=== PATIENT | female | born 1950 | race Caucasian/White ===

== ENCOUNTER → 2017-11-19 | Outpatient (CLI) | payer MEDICARE, BC ==
[~2017-11-19] MED LIST: ESTR1PAT65 TP; FAMO40TA61 PO; VALS160T3 PO
[2017-11-19 12:35] LABS: MICROSCOPIC AUTO
[2017-11-19 12:50] LABS: ALANINE AMINOTRANSFERASE 32 U/L (12-78); ALBUMIN 4.1 g/dL (3.4-5.0); ALKALINE PHOSPHATASE 95 U/L (45-117); ANION GAP 10 mmol/L (5-15); BILIRUBIN,TOTAL 0.4 mg/dL (0.2-1.0); CALCIUM 8.8 mg/dL (8.5-10.1); CHLORIDE 108 mmol/L (98-107); CREATININE 0.79 mg/dL (0.55-1.02); TOTAL PROTEIN 7.9 g/dL (6.4-8.2)
== END ==
LOC: STAR 10:25
PROVIDERS: ATTEND Orthopaedic Surgery
DX: Z01.818 Encounter for other preprocedural examination (principal); M16.11 Unilateral primary osteoarthritis, right hip; R94.31 Abnormal electrocardiogram [ECG] [EKG]
CPT/HCPCS: 36415; 80053; 81001; 87081; 87086; 93005

== ENCOUNTER 2017-12-03 10:33 | Inpatient (IN) | payer BC, MEDICARE ==
[~2017-12-03] VITALS: Ht 165.1 cm; Wt 83.0 kg
[2017-12-03] MEDS ORDERED: LACTATED RINGERS 1,000 ML IV SCH (11:48)
[2017-12-03] MEDS ORDERED: LIDOCAINE 1%, 2ML ONE (11:59)
[2017-12-03] MEDS ORDERED: LIDOCAINE 1%, 2ML SQ PRN (12:00)
[2017-12-03 12:07] LABS: BASOPHILS # (AUTO) 0.04 x10^3/uL (0-0.1); BASOPHILS % (AUTO) 1 % (0-1); EOSINOPHILS # (AUTO) 0.19 x10^3/uL (0-0.4); EOSINOPHILS % (AUTO) 2 % (1-7); LYMPHOCYTES # (AUTO) 1.55 x10^3/uL (1-3.4); LYMPHOCYTES % (AUTO) 17 % (22-44); MD NO; MEAN CORPUSCULAR HEMOGLOBIN 31.6 pg (27.0-34.8); MEAN CORPUSCULAR HGB CONC 34.5 g/dL (32.4-35.8); MEAN CORPUSCULAR VOLUME 91.7 fL (80-100); MEAN PLATELET VOLUME 9.8 fL (7.4-10.4); MONOCYTES # (AUTO) 0.63 x10^3/uL (0.2-0.8); MONOCYTES % (AUTO) 7 % (2-9); NEUTROPHILS # (AUTO) 6.58 x10^3/uL (1.8-6.8); NEUTROPHILS % (AUTO) 73 % (42-75); PLATELET COUNT 207 x10^3/uL (130-400); RED BLOOD COUNT 5.22 x10^6/uL (3.82-5.3); RED CELL DISTRIBUTION WIDTH 12.6 % (9.6-15.2)
[2017-12-03] MEDS ORDERED: MIDAZOLAM 1 MG/ML, 2ML ONE ×2 (12:16)
[2017-12-03] MEDS ORDERED: ROPIvacaine/PF 0.5%, 30 ML ONE (12:26)
[2017-12-03] MEDS ORDERED: KETOROLAC 60 MG/2 ML ONE (12:26)
[2017-12-03] MEDS ORDERED: SODIUM CHLORIDE 0.9% 100 ML ONE (12:26)
[2017-12-03] MEDS ORDERED: morphine SULFATE 10 MG/ML, 1ML ONE (12:26)
[2017-12-03] MEDS ORDERED: BACITRACIN 50,000 UNIT ONE (12:27)
[2017-12-03] MEDS ORDERED: FENTANYL PF 250 MCG/5ML ONE (12:28)
[2017-12-03] MEDS ORDERED: CEFAZOLIN 1,000 MG ONE ×2 (12:30)
[2017-12-03] MEDS ORDERED: LIDOCAINE-MPF 2% ,5ML ONE (12:30)
[2017-12-03] MEDS ORDERED: SODIUM CHLORIDE 0.9% PF 10ML ONE (12:30)
[2017-12-03] MEDS ORDERED: PROPOFOL 10 MG/ML, 20ML ONE (12:30)
[2017-12-03] MEDS ORDERED: DEXAMETHASONE 4 MG/ML, 1ML ONE (12:35)
[2017-12-03] MEDS ORDERED: ONDANSETRON 2MG/ML, 2ML ONE ×2 (12:35)
[2017-12-03] MEDS ORDERED: TRANEXAMIC ACID 100 MG/ML, 10ML ONE (12:37)
[2017-12-03] MEDS ORDERED: PHENYLEPHRINE 10 MG/ML ONE (13:06)
[2017-12-03] MEDS ORDERED: KETAMINE 10 MG/ML, 20ML ONE (13:06)
[2017-12-03] MEDS ORDERED: BUPIVACAINE LIPOSOME/PF INFIL ONE (14:35)
[2017-12-03] MEDS ORDERED: HYDROmorphone 2 MG/ML, 1ML ONE (14:45)
[2017-12-03] MEDS ORDERED: OXYcodone 5 MG/5 ML ORAL.SOL UDC PO PRN (15:00)
[2017-12-03] MEDS ORDERED: ONDANSETRON 2MG/ML, 2ML IVPush PRN (15:00)
[2017-12-03] MEDS ORDERED: LORazepam 2 MG/ML, 1ML IVPush PRN (15:00)
[2017-12-03] MEDS: MEPERIDINE/PF 25MG/0.5ML IVPush PRN ×2 (15:00→15:48)
[2017-12-03] MEDS ORDERED: hydrALAzine 20 MG/ML, 1ML IV PRN (15:00)
[2017-12-03] MEDS ORDERED: ACETAMINOPHEN 325 MG TABLET PO PRN (15:00)
[2017-12-03] MEDS ORDERED: FENTANYL PF 100 MCG/2ML IV PRN (15:00)
[2017-12-03] MEDS ORDERED: LABETALOL 5MG/ML, 20ML IV PRN (15:00)
[2017-12-03] MEDS ORDERED: HYDROmorphone 1 MG/ML, 1ML IV PRN (15:00)
[2017-12-03] MEDS ORDERED: PROMETHAZINE 25 MG/ML, 1ML IV PRN (15:00)
[2017-12-03] MEDS ORDERED: MEPERIDINE/PF 50 MG/ML ONE (15:12)
[2017-12-03] MEDS ORDERED: OXYcodone/APAP 5/325MG TABLET PO PRN (15:30)
[2017-12-03] MEDS ORDERED: PROMETHAZINE 12.5 MG SUPP PR PRN (15:30)
[2017-12-03] MEDS ORDERED: HYDROcodone/APAP 10/325 MG TABLET PO PRN (15:30)
[2017-12-03] MEDS ORDERED: ONDANSETRON 4 MG TABLET PO PRN (15:30)
[2017-12-03] MEDS ORDERED: morphine SULFATE 10 MG/ML, 1ML IV PRN (15:30)
[2017-12-03] MEDS ORDERED: MAGNESIUM HYDROXIDE 8%, 30ML UDC PO PRN (15:30)
[2017-12-03] MEDS ORDERED: BISACODYL 10 MG SUPP PR PRN (15:30)
[2017-12-03] MEDS ORDERED: SENNA/DOCUSATE TABLET PO PRN (15:30)
[2017-12-03] MEDS ORDERED: DIPHENHYDRAMINE 25 MG CAPSULE PO PRN (15:30)
[2017-12-03] MEDS ORDERED: ENOXAPARIN 40 MG/0.4 ML SQ SCH (18:30)
[2017-12-03 19:45] VITALS: BP 122/44
[2017-12-03] MEDS: DOCUSATE 100 MG CAPSULE PO SCH (21:20)
[2017-12-03] MEDS: CEFAZOLIN PMX 2GM/50ML 50 ML IVPB SCH (21:20)
[2017-12-03] MEDS: D5%-LACTATED RINGERS 1,000 ML IV SCH (21:26)
[2017-12-04 00:14] VITALS: BP 108/65
[2017-12-04] MEDS: CEFAZOLIN PMX 2GM/50ML 50 ML IVPB SCH (04:54)
[2017-12-04 04:58] VITALS: BP 125/62
[2017-12-04] MEDS: D5%-LACTATED RINGERS 1,000 ML IV SCH (07:00)
[2017-12-04] MEDS: DOCUSATE 100 MG CAPSULE PO SCH (07:07)
[2017-12-04 08:12] VITALS: BP 107/65
[2017-12-04] MEDS ORDERED: FAMOTIDINE 40 MG TABLET PO SCH (09:00)
[2017-12-04] MEDS ORDERED: VALSARTAN 160 MG TABLET PO SCH (09:00)
[2017-12-04] MEDS ORDERED: KETOROLAC 30 MG/1 ML IV SCH (18:00)
== END 2017-12-04 12:02 | disposition home or self-care (01) | DRG 470 ==
LOC: ORIP 11:14 → 4NOR 17:04 → DCLOUNGE 12-04 11:50
PROVIDERS: ADMIT Orthopaedic Surgery; ATTEND Orthopaedic Surgery
PROC: 0SR903Z Replacement of Right Hip Joint with Ceramic Synthetic Substitute, Open Approach (ICD-10-PCS; principal; 2017-12-03 13:00)
DX: M16.11 Unilateral primary osteoarthritis, right hip (principal); I10 Essential (primary) hypertension; K21.9 Gastro-esophageal reflux disease without esophagitis
CPT/HCPCS: 36415; 85025; 86850; 86900; C1713; C9290; J0690; J1100; J1170; J1650; J1885; J2175; J2250; J2405; J2704; J2795; J3010; J3490; C1776; J2270; J2370; J7120; J7121